=== PATIENT | female | born 1970 | race Two or more races ===

== ENCOUNTER 2016-12-31 18:20 | Inpatient (IN) | payer OTHER ==
[2016-12-31 18:44] VITALS: BMI 25.0
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
[2017-01-01] MEDS ORDERED: ACETAMINOPHEN 325 MG TABLET (FP) PO PRN (02:26)
[2017-01-01] MEDS ORDERED: MAG HYDROX/AL HYDROX/SIMETH 30 ML UNIT-DOSE CUP PO PRN (02:26)
[2017-01-01] MEDS ORDERED: hydrOXYzine PAMOATE 25 MG CAPSULE (FP) PO PRN (02:26)
[2017-01-01] MEDS ORDERED: chlordiazePOXIDE HCL 25 MG CAPSULE PO PRN (02:26)
[2017-01-01] MEDS ORDERED: IBUPROFEN 400 MG TABLET (FP) PO PRN (02:26)
[2017-01-01] MEDS ORDERED: guaiFENesin/D-METHORPHAN HB 10 ML UNIT-DOSE CUPS PO PRN (02:26)
[2017-01-01] MEDS ORDERED: P-EPHED 60MG/TRIPROLIDI 2.5MG TABLET PO PRN (02:26)
[2017-01-01] MEDS ORDERED: MENTHOL/PHENOL 1 EACH UD MM PRN (02:26)
[2017-01-01] MEDS ORDERED: MAGNESIUM HYDROX 2400MG/30ML ORAL SUSPENSION 30 ML CUP PO PRN (02:26)
[2017-01-01] MEDS ORDERED: chlordiazePOXIDE HCL 25 MG CAPSULE PO ONE (02:26)
[2017-01-01] MEDS ORDERED: LOPERAMIDE HCL 2 MG CAPSULE PO PRN (02:26)
[2017-01-01] MEDS ORDERED: ALBUTEROL SO4 6.7 GM HFA INHALER IH PRN (02:39)
[2017-01-01] MEDS: diphenhydrAMINE HCL 50 MG CAPSULE PO PRN (03:27)
[2017-01-01] MEDS: chlordiazePOXIDE HCL 25 MG CAPSULE PO SCH ×4 (06:58→23:10)
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
--- NOTE | 2017-01-01 09:55 | PN ---
S CIWA - CIWA Score Nausea/Vomitin Muscle Tremors: 3 Anxiety: 3 Agitation: 2 Paroxysmal Sweats: 1-Minimal Palms Moist Orientation: 0-Oriented Tacttile Disturbances: 1-Very Mild Itch/Numbness Auditory Disturbances: 1-Very Mild Visual Disturbances: 1-Very Mild Sensitivity Headache: 2-Mild CIWA-Ar Total Score: 17 BHS Progress Note (SOAP) Subjective: ALERT,IRRITABLE,ANXIOUS,INTERRUPTED SLEEP,TREMOR Objective: 01/01/17 09:53 Vital Signs Temperature 97.5 F L 01/01/17 09:47 Pulse Rate 65 01/01/17 09:47 Respiratory Rate 18 01/01/17 09:47 Blood Pressure 121/69 01/01/17 09:47 O2 Sat by Pulse Oximetry (%) EKG SINUS BRADYCARDIA 55 NO CHEST PAIN,NO SOB NO DIZZINESS LABS PENDING Assessment: 01/01/17 09:55 WITHDRAWAL SYMPTOM Plan: CONTINUE DETOX
[2017-01-01 09:58] LABS: MCH 29.2 pg (25.7-33.7); MCHC 32.4 g/dl (32.0-36.0); MEAN CELL VOLUME 90.3 fl (80-96); MEAN PLT VOLUME 10.8 fl (7.5-11.1); PLATELET COUNT 160 K/MM3 (134-434); RDW 14.3 % (11.6-15.6); WHITE BLOOD COUNT 6.9 K/mm3 (4.0-10.0)
[2017-01-01 10:16] LABS: ALBUMIN 3.2 g/dl (3.4-5.0); ANION GAP 6 (8-16); CALCIUM 8.6 mg/dL (8.5-10.1); CO2 31 mmol/L (21-32); GLUCOSE,RANDOM 86 mg/dL (74-106); SGOT/AST 12 U/L (15-37); SGPT/ALT 25 U/L (12-78)
[2017-01-01 10:21] LABS: ALK PHOS 79 U/L (45-117); BILIRUBIN,TOTAL 0.2 mg/dL (0.2-1.0)
--- NOTE | 2017-01-01 11:18 | EKG ---
Test Reason : Blood Pressure : / mmHG Vent. Rate : 055 BPM Atrial Rate : 055 BPM P-R Int : 140 ms QRS Dur : 082 ms QT Int : 438 ms P-R-T Axes : 061 048 060 degrees QTc Int : 419 ms SINUS BRADYCARDIA POSSIBLE LEFT ATRIAL ENLARGEMENT BORDERLINE ECG NO PREVIOUS ECGS AVAILABLE Confirmed by MAYNOR EDOUARD, RADHA ([id number]) on 01/01/2017 11:17:53 AM Referred By: Mal Alvarenga Confirmed By:RADHA MCGUIRE MD
[2017-01-01] MEDS: PRENATAL VITAMINS W/ FOLIC ACID TABLET (FP) PO SCH (11:48)
[2017-01-01] MEDS: HYDROCORTISONE 2.5% TOPICAL CREAM 30 GM TUBE PR SCH (11:48)
[2017-01-01 17:13] LABS: URINE APPEARANCE SLCLOUDY; URINE BILIRUBIN NEGATIVE (NEGATIVE); URINE BLOOD NEGATIVE (NEGATIVE); URINE COLOR LTYELLOW; URINE GLUCOSE (UA) NEGATIVE (NEGATIVE); URINE KETONE NEGATIVE (NEGATIVE); URINE LEUK ESTERASE NEGATIVE (NEGATIVE); URINE NITRITE NEGATIVE (NEGATIVE); URINE PROTEIN NEGATIVE (NEGATIVE); URINE UROBILINOGEN NEGATIVE mg/dL (0.2-1.0)
[2017-01-01] MEDS: NICOTINE POLACRILEX 2 MG GUM BC PRN (17:48)
[2017-01-01] MEDS: THIAMINE HCL 100 MG TABLET (FP) PO SCH (22:25)
[2017-01-02] MEDS: chlordiazePOXIDE HCL 25 MG CAPSULE PO SCH ×4 (06:47→22:15)
[2017-01-02] MEDS: MAGNESIUM CITRATE 300 ML BOTTLE PO PRN (09:40)
[2017-01-02] MEDS: NICOTINE POLACRILEX 2 MG GUM BC PRN (09:40)
[2017-01-02] MEDS: PRENATAL VITAMINS W/ FOLIC ACID TABLET (FP) PO SCH (10:34)
[2017-01-02] MEDS: BACITRACIN 0.9 GM PACKET TP SCH ×2 (10:35→22:15)
[2017-01-02] MEDS: HYDROCORTISONE 2.5% TOPICAL CREAM 30 GM TUBE PR SCH (10:36)
[2017-01-02] MEDS: TOLNAFTATE 1% CREAM 15 GM TUBE TP SCH ×2 (11:00→23:58)
--- NOTE | 2017-01-02 11:35 | PN ---
S CIWA - CIWA Score Nausea/Vomitin Muscle Tremors: 3 Anxiety: 3 Agitation: 2 Paroxysmal Sweats: 1-Minimal Palms Moist Orientation: 0-Oriented Tacttile Disturbances: 1-Very Mild Itch/Numbness Auditory Disturbances: 1-Very Mild Visual Disturbances: 1-Very Mild Sensitivity Headache: 2-Mild CIWA-Ar Total Score: 17 BHS Progress Note (SOAP) Subjective: ALERT,IRRITABLE,ANXIOUS,INTERRUPTED SLEEP,TREMOR,PAIN IN THE BODY, Objective: 01/02/17 11:34 Vital Signs Temperature 98.2 F 01/02/17 10:11 Pulse Rate 79 01/02/17 10:11 Respiratory Rate 16 01/02/17 10:11 Blood Pressure 123/66 01/02/17 10:11 O2 Sat by Pulse Oximetry (%) Assessment: 01/02/17 11:34 Laboratory Last Values WBC 6.9 K/mm3 (4.0-10.0) 01/01/17 07:00 RBC 3.83 M/mm3 (3.60-5.2) 01/01/17 07:00 Hgb 11.2 GM/dL (10.7-15.3) 01/01/17 07:00 Hct 34.5 % (32.4-45.2) 01/01/17 07:00 MCV 90.3 fl (80-96) 01/01/17 07:00 MCH 29.2 pg (25.7-33.7) 01/01/17 07:00 MCHC 32.4 g/dl (32.0-36.0) 01/01/17 07:00 RDW 14.3 % (11.6-15.6) 01/01/17 07:00 Plt Count 160 K/MM3 (134-434) 01/01/17 07:00 MPV 10.8 fl (7.5-11.1) 01/01/17 07:00 Sodium 143 mmol/L (136-145) 01/01/17 07:00 Potassium 4.1 mmol/L (3.5-5.1) 01/01/17 07:00 Chloride 106 mmol/L (98-107) 01/01/17 07:00 Carbon Dioxide 31 mmol/L (21-32) 01/01/17 07:00 Anion Gap 6 (8-16) L 01/01/17 07:00 BUN 15 mg/dL (7-18) 01/01/17 07:00 Creatinine 1.0 mg/dL (0.55-1.02) 01/01/17 07:00 Creat Clearance w eGFR > 60 (>60) 01/01/17 07:00 Random Glucose 86 mg/dL (74-106) 01/01/17 07:00 Calcium 8.6 mg/dL (8.5-10.1) 01/01/17 07:00 Total Bilirubin 0.2 mg/dL (0.2-1.0) D 01/01/17 07:00 AST 12 U/L (15-37) L 01/01/17 07:00 ALT 25 U/L (12-78) D 01/01/17 07:00 Alkaline Phosphatase 79 U/L (45-117) 01/01/17 07:00 Total Protein 6.0 g/dl (6.4-8.2) L 01/01/17 07:00 Albumin 3.2 g/dl (3.4-5.0) L 01/01/17 07:00 Urine Color Ltyellow 01/01/17 14:00 Urine Appearance Slcloudy 01/01/17 14:00 Urine pH 5.0 (5.0-8.0) 01/01/17 14:00 Ur Specific [place] 1.020 (1.005-1.025) 01/01/17 14:00 Urine Protein Negative (NEGATIVE) 01/01/17 14:00 Urine Glucose (UA) Negative (NEGATIVE) 01/01/17 14:00 Urine Ketones Negative (NEGATIVE) 01/01/17 14:00 Urine Blood Negative (NEGATIVE) 01/01/17 14:00 Urine Nitrite Negative (NEGATIVE) 01/01/17 14:00 Urine Bilirubin Negative (NEGATIVE) 01/01/17 14:00 Urine Urobilinogen Negative mg/dL (0.2-1.0) 01/01/17 14:00 Ur Leukocyte Esterase Negative (NEGATIVE) 01/01/17 14:00 RPR Titer Nonreactive (NONREACTIVE) 01/01/17 07:00 01/02/17 11:34 WITHDRAWAL SYMPTOM Plan: CONTINUE DETOX,PSYCHIATRIC REEVALUATION
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
[2017-01-02] MEDS: THIAMINE HCL 100 MG TABLET (FP) PO SCH (22:15)
[2017-01-03] MEDS: chlordiazePOXIDE 5 MG CAPSULE PO SCH ×4 (06:34→22:15)
[2017-01-03] MEDS: BACITRACIN 0.9 GM PACKET TP SCH ×2 (10:42→22:15)
[2017-01-03] MEDS: PRENATAL VITAMINS W/ FOLIC ACID TABLET (FP) PO SCH (10:42)
[2017-01-03] MEDS: LURASIDONE HCL 20 MG TABLET PO SCH (10:42)
[2017-01-03] MEDS: HYDROCORTISONE 2.5% TOPICAL CREAM 30 GM TUBE PR SCH (10:43)
[2017-01-03] MEDS: TOLNAFTATE 1% CREAM 15 GM TUBE TP SCH ×2 (10:44→22:15)
--- NOTE | 2017-01-03 13:37 | PN ---
S Progress Note (SOAP) Subjective: alert,irritable,anxious,interrupted sleep,tremor Objective: 01/03/17 13:36 Vital Signs Temperature 98.1 F 01/03/17 10:00 Pulse Rate 81 01/03/17 10:00 Respiratory Rate 18 01/03/17 10:00 Blood Pressure 123/62 01/03/17 10:00 O2 Sat by Pulse Oximetry (%) Assessment: 01/03/17 13:37 withdrawal symptom Plan: continue detox
[2017-01-03] MEDS: NICOTINE POLACRILEX 2 MG GUM BC PRN (20:12)
[2017-01-03] MEDS: THIAMINE HCL 100 MG TABLET (FP) PO SCH (22:15)
[2017-01-03] MEDS: diphenhydrAMINE HCL 50 MG CAPSULE PO PRN (22:15)
[2017-01-04] MEDS: chlordiazePOXIDE HCL 10 MG CAPSULE PO SCH ×4 (07:27→22:09)
--- NOTE | 2017-01-04 10:15 | PN ---
S Progress Note (SOAP) Subjective: ALERT,IRRITABLE,ANXIOUS,INTERRUPTED SLEEP Objective: 01/04/17 10:13 Vital Signs Temperature 98.1 F 01/04/17 06:16 Pulse Rate 67 01/04/17 06:16 Respiratory Rate 18 01/04/17 06:16 Blood Pressure 112/64 01/04/17 06:16 O2 Sat by Pulse Oximetry (%) Assessment: 01/04/17 10:14 WITHDRAWAL SYMPTOM Plan: CONTINUE DETOX
[2017-01-04] MEDS: BACITRACIN 0.9 GM PACKET TP SCH ×2 (10:49→22:09)
[2017-01-04] MEDS: LURASIDONE HCL 20 MG TABLET PO SCH (10:49)
[2017-01-04] MEDS: PRENATAL VITAMINS W/ FOLIC ACID TABLET (FP) PO SCH (10:49)
[2017-01-04] MEDS: HYDROCORTISONE 2.5% TOPICAL CREAM 30 GM TUBE PR SCH (10:50)
[2017-01-04] MEDS: TOLNAFTATE 1% CREAM 15 GM TUBE TP SCH ×2 (10:50→22:55)
[2017-01-04] MEDS: MAGNESIUM CITRATE 300 ML BOTTLE PO PRN (11:03)
[2017-01-04] MEDS: NICOTINE POLACRILEX 2 MG GUM BC PRN (11:04)
[2017-01-04] MEDS: THIAMINE HCL 100 MG TABLET (FP) PO SCH (22:09)
--- NOTE | 2017-01-05 09:06 | DS ---
[facility] Detox Discharge Summary Admission Date: 01/01/17 Discharge Date: 01/05/17 - History Present History: Alcohol Dependence, Cannabis Dependence, Cocaine Dependence Pertinent Past History: asthma history of anemia schizoaffective disorder hemorrhoid weight loss contusion of right orbit chronic low back pain neck pain history of skin graft left thigh ptsd nicotine dependence - Physical Exam Results Vital Signs: Vital Signs Temperature 97.3 F L 01/05/17 06:23 Pulse Rate 73 01/05/17 06:23 Respiratory Rate 18 01/05/17 06:23 Blood Pressure 106/51 01/05/17 06:23 O2 Sat by Pulse Oximetry (%) Pertinent Admission Physical Exam Findings: withdrawal symptom - Treatment Hospital Course: Detox Protocol Followed, Detoxed Safely, Responded well, Discharged Condition Good, Rehab Referral Accepted Patient has Accepted [facility] Referral [facility] - Medication Discharge Medications: Ambulatory Orders Nicotine Polacrilex [Nicorelief -] 4 mg BUC Q2H PRN #100 gum 11/23/13 Latuda 80 mg PO DAILY 01/01/17 Venlafaxine HCl ER [Effexor Xr -] 37.5 mg PO DAILY 01/01/17 - Diagnosis (1) Alcohol dependence with uncomplicated withdrawal Current Visit: Yes Status: Acute (2) Asthma Current Visit: Yes Status: Chronic (3) Cannabis dependence Current Visit: Yes Status: Chronic (4) Cocaine dependence Current Visit: Yes Status: Chronic (5) History of anemia Current Visit: Yes Status: Chronic (6) Nicotine dependence Current Visit: Yes Status: Chronic (7) Schizoaffective disorder Current Visit: Yes Status: Chronic (8) Hemorrhoid Current Visit: Yes Status: Acute (9) Weight loss Current Visit: Yes Status: Acute (10) Contusion of right orbit Current Visit: Yes Status: Acute (11) Chronic low back pain Current Visit: Yes Status: Acute (12) Neck pain Current Visit: Yes Status: Acute (13) History of skin graft Current Visit: Yes Status: Acute (14) PTSD (post-traumatic stress disorder) Current Visit: Yes Status: Acute
[2017-01-05 10:03] VITALS: BP 119/69; PULSE 77; TEMP 97.5
[2017-01-05] MEDS: LURASIDONE HCL 20 MG TABLET PO SCH (10:08)
[2017-01-05] MEDS: PRENATAL VITAMINS W/ FOLIC ACID TABLET (FP) PO SCH (10:08)
[2017-01-05] MEDS: BACITRACIN 0.9 GM PACKET TP SCH (10:08)
[2017-01-05] MEDS: HYDROCORTISONE 2.5% TOPICAL CREAM 30 GM TUBE PR SCH (10:09)
[2017-01-05] MEDS: TOLNAFTATE 1% CREAM 15 GM TUBE TP SCH (10:09)
[2017-01-05] MEDS: NICOTINE POLACRILEX 2 MG GUM BC PRN (10:22)
== END 2017-01-05 12:45 | disposition other institution (70) | DRG 774 ==
LOC: YASAS 18:20 → Y6N 01-01 01:38
PROVIDERS: ADMIT Internal Medicine; ATTEND Internal Medicine
PROC: HZ2ZZZZ Detoxification Services for Substance Abuse Treatment (ICD-10-PCS; principal; 2017-01-01)
DX: F10.230 Alcohol dependence with withdrawal, uncomplicated (principal); F14.20 Cocaine dependence, uncomplicated; F12.20 Cannabis dependence, uncomplicated; F17.210 Nicotine dependence, cigarettes, uncomplicated; F19.24 Other psychoactive substance dependence with psychoactive substance-induced mood disorder; F43.10 Post-traumatic stress disorder, unspecified; F25.9 Schizoaffective disorder, unspecified; R00.1 Bradycardia, unspecified; J45.909 Unspecified asthma, uncomplicated; K64.8 Other hemorrhoids; M54.5 Low back pain; G89.29 Other chronic pain; M54.2 Cervicalgia; S05.11XA Contusion of eyeball and orbital tissues, right eye, initial encounter; X58.XXXA Exposure to other specified factors, initial encounter; Y93.9 Activity, unspecified; Y92.9 Unspecified place or not applicable; Z86.69 Personal history of other diseases of the nervous system and sense organs; Z87.898 Personal history of other specified conditions; Z86.2 Personal history of diseases of the blood and blood-forming organs and certain disorders involving the immune mechanism; Z88.8 Allergy status to other drugs, medicaments and biological substances; Z87.42 Personal history of other diseases of the female genital tract; Z91.5 Personal history of self-harm; E72.04 Cystinosis
CPT/HCPCS: 36415; 80053; 81003; 85027; 86593; 93005; 93010

== ENCOUNTER 2016-12-31 20:37 | Emergency (ER) | payer OTHER ==
[2016-12-31 21:44] VITALS: BP 123/70; PULSE 67; TEMP 98.7; BMI 25.0
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
== END 2017-01-01 01:03 | disposition home or self-care (01) ==
LOC: JER 20:37
DX: S00.11XA Contusion of right eyelid and periocular area, initial encounter (principal); Y04.2XXA Assault by strike against or bumped into by another person, initial encounter; Y93.89 Activity, other specified; Y92.099 Unspecified place in other non-institutional residence as the place of occurrence of the external cause; Y07.01 Husband, perpetrator of maltreatment and neglect
CPT/HCPCS: 70450-TC; 70480-TC; 84703; 99281-25

== ENCOUNTER 2017-01-05 12:55 | Inpatient (IN) | payer OTHER ==
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
[2017-01-05] MEDS ORDERED: P-EPHED 60MG/TRIPROLIDI 2.5MG TABLET PO PRN (15:01)
[2017-01-05] MEDS ORDERED: MAGNESIUM CITRATE 300 ML BOTTLE PO PRN (15:01)
[2017-01-05] MEDS ORDERED: guaiFENesin/D-METHORPHAN HB 10 ML UNIT-DOSE CUPS PO PRN (15:01)
[2017-01-05] MEDS ORDERED: MAG HYDROX/AL HYDROX/SIMETH 30 ML UNIT-DOSE CUP PO PRN (15:01)
[2017-01-05] MEDS ORDERED: ACETAMINOPHEN 325 MG TABLET (FP) PO PRN (15:01)
[2017-01-05] MEDS ORDERED: LOPERAMIDE HCL 2 MG CAPSULE PO PRN (15:01)
[2017-01-05] MEDS ORDERED: MENTHOL/PHENOL 1 EACH UD MM PRN (15:01)
[2017-01-05] MEDS ORDERED: ALBUTEROL SO4 6.7 GM HFA INHALER IH SCH (15:15)
--- NOTE | 2017-01-05 16:14 | HP ---
[facility] Rehab Assess/Revision - Admission History Admitted to Rehab from: [facility] Date of Admission to Rehab: 01/05/17 - Vital signs Vital Signs: Vital Signs Period Temp Pulse Resp BP Sys/Rinaldi Pulse Ox Last 24 Hr 98.7 F 89 18 135/75 - Findings Detox History & Physical reviewed: Yes Concur with findings: Yes Comments/Additional Findings: transferred from detox to rehab admission as per protocol
[2017-01-05] MEDS: BACITRACIN 0.9 GM PACKET TP SCH (21:44)
[2017-01-05] MEDS: HYDROCORTISONE 2.5% TOPICAL CREAM 30 GM TUBE RC SCH (21:44)
[2017-01-05] MEDS: TOLNAFTATE 1% CREAM 15 GM TUBE TP SCH (21:45)
[2017-01-05] MEDS: THIAMINE HCL 100 MG TABLET (FP) PO SCH (21:46)
[2017-01-06] MEDS: PRENATAL VITAMINS W/ FOLIC ACID TABLET (FP) PO SCH (10:42)
[2017-01-06] MEDS: BACITRACIN 0.9 GM PACKET TP SCH ×2 (10:43→21:58)
[2017-01-06] MEDS: NICOTINE 14 MG/24 HOURS TOPICAL PATCH TD SCH (10:43)
[2017-01-06] MEDS: HYDROCORTISONE 2.5% TOPICAL CREAM 30 GM TUBE RC SCH ×2 (10:45→21:57)
[2017-01-06] MEDS: TOLNAFTATE 1% CREAM 15 GM TUBE TP SCH ×2 (10:46→21:59)
--- NOTE | 2017-01-06 13:22 | PN ---
Psychiatric Progress Note Vital Signs: Vital Signs Period Temp Pulse Resp BP Sys/Rinaldi Pulse Ox Last 24 Hr 98.0 F-98.7 F 76-91 16-18 119-135/75-77 Date of Session: 01/06/17 Chief Complaint:: Sergei nervious still having mood swing,need medications. HPI: Patient addressed Alcohol,Cocaine and Cannabis dependence comorbid with PTSD,Substance induced mood disorder,Schizoaffective disorder. ROS: BA,Chronic low back pain,Anemia. Current Medications: Active Medications Generic Name Dose Route Start Last Admin Trade Name Freq PRN Reason Stop Dose Admin Acetaminophen 650 mg 01/05/17 15:01 Tylenol - PO Q4H PRN FEVER OR PAIN Al Hydroxide/Mg Hydroxide 30 ml 01/05/17 15:01 Mylanta Oral Suspension - PO Q6H PRN DYSPEPSIA Albuterol Sulfate 2 puff 01/05/17 16:46 Ventolin Hfa Inhaler - IH Q4H PRN ASTHMA Bacitracin 0.9 gm 01/05/17 22:00 01/06/17 10:43 Bacitracin - TP 0.9 gm BID DELFIN Administration Diphenhydramine HCl 50 mg 01/05/17 15:01 Benadryl - PO HSMR1 PRN FOR ITCHING Eucalyptus/Menthol/Phenol/Sorbitol 1 each 01/05/17 15:01 Cepastat Lozenge - MM Q4H PRN SORE THROAT Guaifenesin 10 ml 01/05/17 15:01 Robitussin Dm - PO Q6H PRN COUGH Hydrocortisone 1 applic 01/05/17 22:00 01/06/17 10:45 Anusol 2.5% Hc Cream - RC 1 applic BID DELFIN Administration Hydroxyzine Pamoate 25 mg 01/05/17 15:01 Vistaril - PO Q4H PRN AGITATION Ibuprofen 400 mg 01/05/17 15:01 Motrin - PO Q6H PRN PAIN Loperamide HCl 4 mg 01/05/17 15:01 Imodium - PO Q6H PRN DIARRHEA Lurasidone HCl 40 mg 01/06/17 22:00 Latuda - PO HS DELFIN Magnesium Citrate 300 ml 01/05/17 15:01 Citroma - PO 01/07/17 15:02 Q48H PRN CONSTIPATION Magnesium Hydroxide 30 ml 01/05/17 15:01 Milk Of Magnesia - PO DAILY PRN CONSTIPATION Nicotine 14 mg 01/06/17 10:00 01/06/17 10:43 Nicoderm Patch - TD 14 mg DAILY DELFIN Administration Nicotine Polacrilex 2 mg 01/05/17 15:01 Nicorette Gum - BUC Q2H PRN NICOTINE REPLACEMENT RX Multivit/Folic Acid/Iron 1 tab 01/06/17 10:00 01/06/17 10:42 Vitamins (Sjr) - PO 1 tab DAILY DELFIN Administration Pseudoephedrine/Triprolidine 1 combo 01/05/17 15:01 Actifed - PO TID PRN NASAL CONGESTION Thiamine HCl 100 mg 01/05/17 22:00 01/05/17 21:46 Vitamin B1 - PO 100 mg HS DELFIN Administration Tolnaftate 1 applic 01/05/17 22:00 01/06/17 10:46 Tinactin 1% Cream - TP 1 applic BID DELFIN Administration Current Side Effect: No Lab tests ordered: No Lab tests reviewed: Yes Provider note:: Chart was revueved,patient was seen today in my office.Current management has been revuewed and discussed with the patient .properties of latuda as well as other mood dstbililizers has been discussed including benefits,side effect profile and dose adjustment. Latuda 40 mg po hs will be started tonight. Supportive therapy provided. Total face to face time:: 35 Mental Status Exam - Mental Status Exam Alert and Oriented to: Time, Place, Person Cognitive Function: Grossly Intact Patient Appearance: Unkempt Mood: Anxious, Apprehensive, Irritable Affect: Mood Congruent, Labile Patient Behavior: Talkative, Cooperative Speech Pattern: Clear Voice Loudness: Normal Thought Process: Goal Oriented Thought Disorder: Being Controlled Hallucinations: Denies Suicidal Ideation: Denies Homicidal Ideation: Denies Insight/Judgement: Fair Sleep: Fair Appetite: Good Muscle strength/Tone: Normal Gait/Station: Normal Psychiatric Treatment Plan - Problem List (1) Chronic low back pain Current Visit: Yes (2) Alcohol dependence Current Visit: Yes (3) Asthma Current Visit: Yes (4) Cannabis dependence Current Visit: Yes (5) Cocaine dependence Current Visit: Yes (6) History of anemia Current Visit: Yes (7) Nicotine dependence Current Visit: Yes (8) PTSD (post-traumatic stress disorder) Current Visit: Yes Comment: Self-report. (9) Schizoaffective disorder, depressive type Current Visit: Yes
[2017-01-06] MEDS: THIAMINE HCL 100 MG TABLET (FP) PO SCH (21:58)
[2017-01-06] MEDS: LURASIDONE HCL 40 MG TABLET PO SCH (21:59)
[2017-01-06] MEDS: diphenhydrAMINE HCL 50 MG CAPSULE PO PRN (21:59)
[2017-01-07] MEDS: hydrOXYzine PAMOATE 25 MG CAPSULE (FP) PO PRN (06:26)
[2017-01-07] MEDS ORDERED: PT OWN MED DRAWER 7, Y5N ONE (08:32)
[2017-01-07] MEDS: HYDROCORTISONE 2.5% TOPICAL CREAM 30 GM TUBE RC SCH ×2 (10:32→21:49)
[2017-01-07] MEDS: NICOTINE 14 MG/24 HOURS TOPICAL PATCH TD SCH (10:33)
[2017-01-07] MEDS: PRENATAL VITAMINS W/ FOLIC ACID TABLET (FP) PO SCH (10:33)
[2017-01-07] MEDS: TOLNAFTATE 1% CREAM 15 GM TUBE TP SCH ×2 (10:33→21:50)
[2017-01-07] MEDS: BACITRACIN 0.9 GM PACKET TP SCH ×2 (10:34→21:49)
[2017-01-07] MEDS: LURASIDONE HCL 40 MG TABLET PO SCH (21:50)
[2017-01-07] MEDS: THIAMINE HCL 100 MG TABLET (FP) PO SCH (21:50)
[2017-01-07] MEDS: IBUPROFEN 400 MG TABLET (FP) PO PRN (21:52)
[2017-01-08] MEDS: hydrOXYzine PAMOATE 25 MG CAPSULE (FP) PO PRN ×2 (06:12→10:13)
[2017-01-08] MEDS ORDERED: PT OWN MED DRAWER 7, Y5N ONE ×4 (08:30→19:32)
[2017-01-08] MEDS: HYDROCORTISONE 2.5% TOPICAL CREAM 30 GM TUBE RC SCH ×2 (10:08→21:42)
[2017-01-08] MEDS: BACITRACIN 0.9 GM PACKET TP SCH ×2 (10:09→21:42)
[2017-01-08] MEDS: NICOTINE 14 MG/24 HOURS TOPICAL PATCH TD SCH (10:09)
[2017-01-08] MEDS: PRENATAL VITAMINS W/ FOLIC ACID TABLET (FP) PO SCH (10:10)
[2017-01-08] MEDS: TOLNAFTATE 1% CREAM 15 GM TUBE TP SCH ×2 (10:10→21:42)
[2017-01-08] MEDS: NICOTINE POLACRILEX 2 MG GUM BUC PRN ×2 (10:11→15:08)
[2017-01-08] MEDS: THIAMINE HCL 100 MG TABLET (FP) PO SCH (21:41)
[2017-01-08] MEDS: LURASIDONE HCL 40 MG TABLET PO SCH (21:42)
[2017-01-08] MEDS: diphenhydrAMINE HCL 50 MG CAPSULE PO PRN (21:44)
[2017-01-09] MEDS ORDERED: MAGNESIUM CITRATE 300 ML BOTTLE PO PRN (00:15)
[2017-01-09] MEDS: hydrOXYzine PAMOATE 25 MG CAPSULE (FP) PO PRN ×3 (06:20→15:51)
[2017-01-09] MEDS: NICOTINE POLACRILEX 2 MG GUM BUC PRN ×2 (06:20→11:06)
[2017-01-09] MEDS ORDERED: PT OWN MED DRAWER 7, Y5N ONE ×2 (09:05→19:55)
[2017-01-09] MEDS: HYDROCORTISONE 2.5% TOPICAL CREAM 30 GM TUBE RC SCH ×2 (10:49→21:58)
[2017-01-09] MEDS: BACITRACIN 0.9 GM PACKET TP SCH ×2 (10:49→21:57)
[2017-01-09] MEDS: PRENATAL VITAMINS W/ FOLIC ACID TABLET (FP) PO SCH (10:49)
[2017-01-09] MEDS: NICOTINE 14 MG/24 HOURS TOPICAL PATCH TD SCH (10:49)
[2017-01-09] MEDS: TOLNAFTATE 1% CREAM 15 GM TUBE TP SCH ×2 (10:50→22:00)
[2017-01-09 12:18] LABS: HIV 1 & 2 AB NEGATIVE; HIV 1 AGp24 NEGATIVE
[2017-01-09] MEDS: THIAMINE HCL 100 MG TABLET (FP) PO SCH (21:57)
[2017-01-09] MEDS: LURASIDONE HCL 40 MG TABLET PO SCH (21:57)
[2017-01-09] MEDS: diphenhydrAMINE HCL 50 MG CAPSULE PO PRN (21:59)
[2017-01-10] MEDS: hydrOXYzine PAMOATE 25 MG CAPSULE (FP) PO PRN ×2 (08:46→21:57)
[2017-01-10] MEDS ORDERED: PT OWN MED DRAWER 7, Y5N ONE (09:02)
[2017-01-10] MEDS: PRENATAL VITAMINS W/ FOLIC ACID TABLET (FP) PO SCH (10:12)
[2017-01-10] MEDS: BACITRACIN 0.9 GM PACKET TP SCH ×2 (10:12→21:55)
[2017-01-10] MEDS: NICOTINE 14 MG/24 HOURS TOPICAL PATCH TD SCH (10:12)
[2017-01-10] MEDS: HYDROCORTISONE 2.5% TOPICAL CREAM 30 GM TUBE RC SCH ×2 (10:12→21:55)
[2017-01-10] MEDS: TOLNAFTATE 1% CREAM 15 GM TUBE TP SCH ×2 (10:13→21:56)
[2017-01-10] MEDS: NICOTINE POLACRILEX 2 MG GUM BUC PRN ×2 (13:20→18:38)
[2017-01-10] MEDS: THIAMINE HCL 100 MG TABLET (FP) PO SCH (21:55)
[2017-01-10] MEDS: LURASIDONE HCL 40 MG TABLET PO SCH (21:56)
[2017-01-11] MEDS: hydrOXYzine PAMOATE 25 MG CAPSULE (FP) PO PRN ×3 (06:42→17:24)
[2017-01-11] MEDS: NICOTINE POLACRILEX 2 MG GUM BUC PRN ×3 (06:42→13:07)
[2017-01-11] MEDS: NICOTINE 14 MG/24 HOURS TOPICAL PATCH TD SCH (10:17)
[2017-01-11] MEDS: PRENATAL VITAMINS W/ FOLIC ACID TABLET (FP) PO SCH (10:17)
[2017-01-11] MEDS: BACITRACIN 0.9 GM PACKET TP SCH ×2 (10:17→21:37)
[2017-01-11] MEDS: TOLNAFTATE 1% CREAM 15 GM TUBE TP SCH ×2 (10:18→21:37)
[2017-01-11] MEDS: HYDROCORTISONE 2.5% TOPICAL CREAM 30 GM TUBE RC SCH ×2 (10:18→21:37)
[2017-01-11] MEDS: diphenhydrAMINE HCL 50 MG CAPSULE PO PRN (21:37)
[2017-01-11] MEDS: LURASIDONE HCL 40 MG TABLET PO SCH (21:38)
[2017-01-11] MEDS: THIAMINE HCL 100 MG TABLET (FP) PO SCH (21:38)
[2017-01-12] MEDS: hydrOXYzine PAMOATE 25 MG CAPSULE (FP) PO PRN ×4 (03:45→21:44)
[2017-01-12] MEDS: HYDROCORTISONE 2.5% TOPICAL CREAM 30 GM TUBE RC SCH ×2 (10:15→21:43)
[2017-01-12] MEDS: NICOTINE 14 MG/24 HOURS TOPICAL PATCH TD SCH (10:15)
[2017-01-12] MEDS: TOLNAFTATE 1% CREAM 15 GM TUBE TP SCH ×2 (10:16→21:43)
[2017-01-12] MEDS: PRENATAL VITAMINS W/ FOLIC ACID TABLET (FP) PO SCH (10:16)
[2017-01-12] MEDS: BACITRACIN 0.9 GM PACKET TP SCH ×2 (10:16→21:42)
[2017-01-12] MEDS: NICOTINE POLACRILEX 2 MG GUM BUC PRN ×3 (10:19→21:43)
[2017-01-12] MEDS ORDERED: PT OWN MED DRAWER 7, Y5N ONE (20:25)
[2017-01-12] MEDS: THIAMINE HCL 100 MG TABLET (FP) PO SCH (21:42)
[2017-01-12] MEDS: LURASIDONE HCL 40 MG TABLET PO SCH (21:42)
[2017-01-13] MEDS: hydrOXYzine PAMOATE 25 MG CAPSULE (FP) PO PRN ×4 (06:39→21:37)
[2017-01-13] MEDS: NICOTINE POLACRILEX 2 MG GUM BUC PRN ×3 (06:40→21:37)
[2017-01-13] MEDS: BACITRACIN 0.9 GM PACKET TP SCH ×2 (10:33→21:36)
[2017-01-13] MEDS: NICOTINE 14 MG/24 HOURS TOPICAL PATCH TD SCH (10:33)
[2017-01-13] MEDS: PRENATAL VITAMINS W/ FOLIC ACID TABLET (FP) PO SCH (10:33)
[2017-01-13] MEDS: TOLNAFTATE 1% CREAM 15 GM TUBE TP SCH ×2 (10:34→21:38)
[2017-01-13] MEDS: HYDROCORTISONE 2.5% TOPICAL CREAM 30 GM TUBE RC SCH ×2 (10:35→21:35)
[2017-01-13] MEDS ORDERED: PT OWN MED DRAWER 7, Y5N ONE (10:36)
[2017-01-13] MEDS: LURASIDONE HCL 40 MG TABLET PO SCH (21:36)
[2017-01-13] MEDS: THIAMINE HCL 100 MG TABLET (FP) PO SCH (21:36)
[2017-01-14] MEDS: hydrOXYzine PAMOATE 25 MG CAPSULE (FP) PO PRN ×2 (07:05→13:23)
[2017-01-14] MEDS ORDERED: PT OWN MED DRAWER 7, Y5N ONE ×2 (08:31→21:41)
[2017-01-14] MEDS: PRENATAL VITAMINS W/ FOLIC ACID TABLET (FP) PO SCH (10:25)
[2017-01-14] MEDS: BACITRACIN 0.9 GM PACKET TP SCH ×2 (10:26→21:38)
[2017-01-14] MEDS: NICOTINE 14 MG/24 HOURS TOPICAL PATCH TD SCH (10:26)
[2017-01-14] MEDS: HYDROCORTISONE 2.5% TOPICAL CREAM 30 GM TUBE RC SCH ×2 (10:28→21:41)
[2017-01-14] MEDS: NICOTINE POLACRILEX 2 MG GUM BUC PRN (10:29)
[2017-01-14] MEDS: TOLNAFTATE 1% CREAM 15 GM TUBE TP SCH ×2 (10:30→21:39)
[2017-01-14] MEDS ORDERED: HALOPERIDOL 1 MG TABLET (FP) PO PRN (13:43)
[2017-01-14] MEDS: IBUPROFEN 400 MG TABLET (FP) PO PRN ×2 (15:30→21:37)
[2017-01-14] MEDS: hydrOXYzine PAMOATE 50 MG CAPSULE (FP) PO PRN (18:49)
[2017-01-14] MEDS: MAGNESIUM HYDROX 2400MG/30ML ORAL SUSPENSION 30 ML CUP PO PRN (18:49)
[2017-01-14] MEDS: THIAMINE HCL 100 MG TABLET (FP) PO SCH (21:39)
[2017-01-14] MEDS: diphenhydrAMINE HCL 50 MG CAPSULE PO PRN (21:39)
[2017-01-14] MEDS: OLANZapine 5 MG TABLET PO PRN (21:40)
[2017-01-15] MEDS: OLANZapine 5 MG TABLET PO PRN ×3 (06:36→21:27)
[2017-01-15] MEDS: NICOTINE POLACRILEX 2 MG GUM BUC PRN ×3 (06:37→14:43)
[2017-01-15] MEDS ORDERED: LURASIDONE HCL 80 MG TABLET PO SCH (10:00)
[2017-01-15] MEDS: HYDROCORTISONE 2.5% TOPICAL CREAM 30 GM TUBE RC SCH ×2 (10:01→21:24)
[2017-01-15] MEDS: TOLNAFTATE 1% CREAM 15 GM TUBE TP SCH ×2 (10:01→21:24)
[2017-01-15] MEDS: LURASIDONE HCL 40 MG, LURASIDONE HCL 20 MG PO SCH (10:02)
[2017-01-15] MEDS: NICOTINE 14 MG/24 HOURS TOPICAL PATCH TD SCH (10:03)
[2017-01-15] MEDS: hydrOXYzine PAMOATE 50 MG CAPSULE (FP) PO PRN (10:03)
[2017-01-15] MEDS: BACITRACIN 0.9 GM PACKET TP SCH ×2 (10:03→21:24)
[2017-01-15] MEDS: PRENATAL VITAMINS W/ FOLIC ACID TABLET (FP) PO SCH (10:03)
[2017-01-15] MEDS: MAGNESIUM HYDROX 2400MG/30ML ORAL SUSPENSION 30 ML CUP PO PRN (12:19)
[2017-01-15] MEDS: IBUPROFEN 400 MG TABLET (FP) PO PRN (14:43)
[2017-01-15] MEDS ORDERED: MAGNESIUM CITRATE 300 ML BOTTLE PO PRN (16:20)
[2017-01-15] MEDS: THIAMINE HCL 100 MG TABLET (FP) PO SCH (21:23)
[2017-01-15] MEDS: diphenhydrAMINE HCL 50 MG CAPSULE PO PRN (21:24)
[2017-01-15] MEDS: DOCUSATE SODIUM 100 MG CAPSULE (FP) PO SCH (21:26)
[2017-01-16] MEDS: OLANZapine 5 MG TABLET PO PRN ×2 (08:49→21:34)
[2017-01-16] MEDS: BENZTROPINE MESYLATE 1 MG TABLET (FP) PO PRN (08:50)
[2017-01-16] MEDS: NICOTINE POLACRILEX 2 MG GUM BUC PRN ×3 (08:51→21:36)
[2017-01-16] MEDS ORDERED: PT OWN MED DRAWER 7, Y5N ONE ×2 (08:57→10:27)
[2017-01-16] MEDS: HYDROCORTISONE 2.5% TOPICAL CREAM 30 GM TUBE RC SCH ×2 (10:25→21:35)
[2017-01-16] MEDS: PRENATAL VITAMINS W/ FOLIC ACID TABLET (FP) PO SCH (10:25)
[2017-01-16] MEDS: BACITRACIN 0.9 GM PACKET TP SCH ×2 (10:25→21:35)
[2017-01-16] MEDS: LURASIDONE HCL 40 MG, LURASIDONE HCL 20 MG PO SCH (10:27)
[2017-01-16] MEDS: NICOTINE 14 MG/24 HOURS TOPICAL PATCH TD SCH (10:28)
[2017-01-16] MEDS: TOLNAFTATE 1% CREAM 15 GM TUBE TP SCH ×2 (10:29→21:35)
[2017-01-16] MEDS: hydrOXYzine PAMOATE 50 MG CAPSULE (FP) PO PRN (12:36)
[2017-01-16] MEDS: THIAMINE HCL 100 MG TABLET (FP) PO SCH (21:34)
[2017-01-16] MEDS: DOCUSATE SODIUM 100 MG CAPSULE (FP) PO SCH (21:34)
[2017-01-16] MEDS: diphenhydrAMINE HCL 50 MG CAPSULE PO PRN (21:35)
[2017-01-17] MEDS: hydrOXYzine PAMOATE 50 MG CAPSULE (FP) PO PRN ×3 (06:33→21:37)
[2017-01-17] MEDS: NICOTINE POLACRILEX 2 MG GUM BUC PRN ×4 (06:33→17:17)
[2017-01-17] MEDS: HYDROCORTISONE 2.5% TOPICAL CREAM 30 GM TUBE RC SCH ×2 (09:48→21:34)
[2017-01-17] MEDS: PRENATAL VITAMINS W/ FOLIC ACID TABLET (FP) PO SCH (09:49)
[2017-01-17] MEDS: LURASIDONE HCL 40 MG, LURASIDONE HCL 20 MG PO SCH (09:49)
[2017-01-17] MEDS ORDERED: PT OWN MED DRAWER 7, Y5N ONE ×2 (09:50→19:38)
[2017-01-17] MEDS: BACITRACIN 0.9 GM PACKET TP SCH ×2 (09:50→21:34)
[2017-01-17] MEDS: NICOTINE 14 MG/24 HOURS TOPICAL PATCH TD SCH (09:51)
[2017-01-17] MEDS: OLANZapine 5 MG TABLET PO PRN ×2 (09:51→21:37)
[2017-01-17] MEDS: TOLNAFTATE 1% CREAM 15 GM TUBE TP SCH ×2 (09:51→21:35)
[2017-01-17] MEDS: IBUPROFEN 400 MG TABLET (FP) PO PRN (12:47)
[2017-01-17] MEDS: DOCUSATE SODIUM 100 MG CAPSULE (FP) PO SCH (21:35)
[2017-01-17] MEDS: THIAMINE HCL 100 MG TABLET (FP) PO SCH (21:35)
[2017-01-18] MEDS: hydrOXYzine PAMOATE 50 MG CAPSULE (FP) PO PRN ×2 (06:25→20:10)
[2017-01-18] MEDS: IBUPROFEN 400 MG TABLET (FP) PO PRN (06:25)
[2017-01-18] MEDS: NICOTINE POLACRILEX 2 MG GUM BUC PRN ×5 (06:26→20:10)
[2017-01-18] MEDS: HYDROCORTISONE 2.5% TOPICAL CREAM 30 GM TUBE RC SCH ×2 (09:58→21:26)
[2017-01-18] MEDS: LURASIDONE HCL 40 MG, LURASIDONE HCL 20 MG PO SCH (09:59)
[2017-01-18] MEDS: PRENATAL VITAMINS W/ FOLIC ACID TABLET (FP) PO SCH (10:00)
[2017-01-18] MEDS: OLANZapine 5 MG TABLET PO PRN ×2 (10:00→21:30)
[2017-01-18] MEDS: BACITRACIN 0.9 GM PACKET TP SCH ×2 (10:00→21:27)
[2017-01-18] MEDS: NICOTINE 14 MG/24 HOURS TOPICAL PATCH TD SCH (10:01)
[2017-01-18] MEDS: TOLNAFTATE 1% CREAM 15 GM TUBE TP SCH ×2 (10:01→21:42)
[2017-01-18] MEDS ORDERED: PT OWN MED DRAWER 7, Y5N ONE (19:21)
[2017-01-18] MEDS: THIAMINE HCL 100 MG TABLET (FP) PO SCH (21:27)
[2017-01-18] MEDS: DOCUSATE SODIUM 100 MG CAPSULE (FP) PO SCH (21:27)
[2017-01-18] MEDS: BENZTROPINE MESYLATE 1 MG TABLET (FP) PO PRN (21:31)
[2017-01-19] MEDS: hydrOXYzine PAMOATE 50 MG CAPSULE (FP) PO PRN (06:41)
[2017-01-19] MEDS: NICOTINE POLACRILEX 2 MG GUM BUC PRN ×3 (06:42→17:50)
[2017-01-19] MEDS ORDERED: PT OWN MED DRAWER 7, Y5N ONE ×3 (08:42→13:54)
[2017-01-19] MEDS: PRENATAL VITAMINS W/ FOLIC ACID TABLET (FP) PO SCH (10:25)
[2017-01-19] MEDS: BACITRACIN 0.9 GM PACKET TP SCH ×2 (10:25→21:32)
[2017-01-19] MEDS: HYDROCORTISONE 2.5% TOPICAL CREAM 30 GM TUBE RC SCH ×2 (10:25→21:32)
[2017-01-19] MEDS: LURASIDONE HCL 40 MG, LURASIDONE HCL 20 MG PO SCH (10:25)
[2017-01-19] MEDS: TOLNAFTATE 1% CREAM 15 GM TUBE TP SCH ×2 (10:26→21:32)
[2017-01-19] MEDS: NICOTINE 14 MG/24 HOURS TOPICAL PATCH TD SCH (10:26)
[2017-01-19] MEDS: ALBUTEROL SO4 6.7 GM HFA INHALER IH PRN (10:30)
[2017-01-19] MEDS: OLANZapine 5 MG TABLET PO SCH ×2 (16:21→21:33)
[2017-01-19] MEDS: DOCUSATE SODIUM 100 MG CAPSULE (FP) PO SCH (21:32)
[2017-01-19] MEDS: THIAMINE HCL 100 MG TABLET (FP) PO SCH (21:33)
[2017-01-19] MEDS: diphenhydrAMINE HCL 50 MG CAPSULE PO PRN (21:34)
[2017-01-20] MEDS: hydrOXYzine PAMOATE 50 MG CAPSULE (FP) PO PRN ×2 (07:52→20:06)
[2017-01-20] MEDS: NICOTINE POLACRILEX 2 MG GUM BUC PRN ×2 (07:53→20:04)
[2017-01-20] MEDS ORDERED: PT OWN MED DRAWER 7, Y5N ONE (08:33)
[2017-01-20] MEDS: OLANZapine 5 MG TABLET PO SCH ×2 (10:26→21:34)
[2017-01-20] MEDS: BACITRACIN 0.9 GM PACKET TP SCH ×2 (10:26→21:34)
[2017-01-20] MEDS: PRENATAL VITAMINS W/ FOLIC ACID TABLET (FP) PO SCH (10:26)
[2017-01-20] MEDS: LURASIDONE HCL 40 MG, LURASIDONE HCL 20 MG PO SCH (10:27)
[2017-01-20] MEDS: HYDROCORTISONE 2.5% TOPICAL CREAM 30 GM TUBE RC SCH ×2 (10:28→21:36)
[2017-01-20] MEDS: TOLNAFTATE 1% CREAM 15 GM TUBE TP SCH ×2 (10:29→21:35)
[2017-01-20] MEDS: NICOTINE 14 MG/24 HOURS TOPICAL PATCH TD SCH (10:30)
[2017-01-20] MEDS: COLLOIDAL OATMEAL 1 BAR EACH TP PRN (10:32)
[2017-01-20] MEDS: BENZTROPINE MESYLATE 1 MG TABLET (FP) PO PRN ×2 (10:32→21:36)
[2017-01-20] MEDS: THIAMINE HCL 100 MG TABLET (FP) PO SCH (21:34)
[2017-01-20] MEDS: DOCUSATE SODIUM 100 MG CAPSULE (FP) PO SCH (21:34)
[2017-01-21] MEDS: hydrOXYzine PAMOATE 50 MG CAPSULE (FP) PO PRN ×4 (06:38→21:36)
[2017-01-21] MEDS: NICOTINE POLACRILEX 2 MG GUM BUC PRN ×3 (06:39→11:16)
[2017-01-21] MEDS: BACITRACIN 0.9 GM PACKET TP SCH ×2 (09:01→21:35)
[2017-01-21] MEDS: PRENATAL VITAMINS W/ FOLIC ACID TABLET (FP) PO SCH (09:01)
[2017-01-21] MEDS: TOLNAFTATE 1% CREAM 15 GM TUBE TP SCH ×2 (09:01→21:37)
[2017-01-21] MEDS: OLANZapine 5 MG TABLET PO SCH ×2 (09:01→21:35)
[2017-01-21] MEDS: LURASIDONE HCL 40 MG, LURASIDONE HCL 20 MG PO SCH (09:02)
[2017-01-21] MEDS: NICOTINE 14 MG/24 HOURS TOPICAL PATCH TD SCH (09:02)
[2017-01-21] MEDS: ALBUTEROL SO4 6.7 GM HFA INHALER IH PRN (11:15)
[2017-01-21] MEDS: HYDROCORTISONE 2.5% TOPICAL CREAM 30 GM TUBE RC SCH ×2 (12:01→21:37)
[2017-01-21] MEDS: NICOTINE POLACRILEX 4 MG GUM BUC PRN ×2 (15:49→21:37)
[2017-01-21] MEDS: DOCUSATE SODIUM 100 MG CAPSULE (FP) PO SCH (21:35)
[2017-01-21] MEDS: diphenhydrAMINE HCL 50 MG CAPSULE PO PRN (21:35)
[2017-01-21] MEDS: THIAMINE HCL 100 MG TABLET (FP) PO SCH (21:36)
[2017-01-21] MEDS: BENZTROPINE MESYLATE 1 MG TABLET (FP) PO PRN (21:37)
[2017-01-22] MEDS: hydrOXYzine PAMOATE 50 MG CAPSULE (FP) PO PRN ×3 (07:51→21:35)
[2017-01-22] MEDS: NICOTINE POLACRILEX 4 MG GUM BUC PRN ×4 (07:52→18:54)
[2017-01-22] MEDS ORDERED: PT OWN MED DRAWER 7, Y5N ONE ×2 (08:35→10:54)
[2017-01-22] MEDS: OLANZapine 5 MG TABLET PO SCH ×2 (10:48→21:32)
[2017-01-22] MEDS: HYDROCORTISONE 2.5% TOPICAL CREAM 30 GM TUBE RC SCH ×2 (10:48→21:32)
[2017-01-22] MEDS: BACITRACIN 0.9 GM PACKET TP SCH ×2 (10:48→21:31)
[2017-01-22] MEDS: PRENATAL VITAMINS W/ FOLIC ACID TABLET (FP) PO SCH (10:48)
[2017-01-22] MEDS: LURASIDONE HCL 40 MG, LURASIDONE HCL 20 MG PO SCH (10:48)
[2017-01-22] MEDS: TOLNAFTATE 1% CREAM 15 GM TUBE TP SCH ×2 (10:49→21:33)
[2017-01-22] MEDS: NICOTINE 14 MG/24 HOURS TOPICAL PATCH TD SCH (10:49)
[2017-01-22] MEDS: BENZTROPINE MESYLATE 1 MG TABLET (FP) PO PRN (10:54)
[2017-01-22] MEDS: DOCUSATE SODIUM 100 MG CAPSULE (FP) PO SCH (21:31)
[2017-01-22] MEDS: THIAMINE HCL 100 MG TABLET (FP) PO SCH (21:33)
[2017-01-23] MEDS: hydrOXYzine PAMOATE 50 MG CAPSULE (FP) PO PRN ×3 (06:29→17:41)
[2017-01-23] MEDS: NICOTINE POLACRILEX 4 MG GUM BUC PRN ×5 (06:29→22:09)
[2017-01-23] MEDS: COLLOIDAL OATMEAL 1 BAR EACH TP PRN (07:02)
[2017-01-23] MEDS ORDERED: PT OWN MED DRAWER 7, Y5N ONE ×3 (09:06→20:04)
[2017-01-23] MEDS: BENZTROPINE MESYLATE 1 MG TABLET (FP) PO PRN (10:34)
[2017-01-23] MEDS: LURASIDONE HCL 40 MG, LURASIDONE HCL 20 MG PO SCH (10:34)
[2017-01-23] MEDS: OLANZapine 5 MG TABLET PO SCH ×2 (10:34→22:07)
[2017-01-23] MEDS: BACITRACIN 0.9 GM PACKET TP SCH ×2 (10:35→22:07)
[2017-01-23] MEDS: HYDROCORTISONE 2.5% TOPICAL CREAM 30 GM TUBE RC SCH ×2 (10:35→22:08)
[2017-01-23] MEDS: TOLNAFTATE 1% CREAM 15 GM TUBE TP SCH ×2 (10:35→22:09)
[2017-01-23] MEDS: NICOTINE 14 MG/24 HOURS TOPICAL PATCH TD SCH (10:36)
[2017-01-23] MEDS: PRENATAL VITAMINS W/ FOLIC ACID TABLET (FP) PO SCH (10:36)
[2017-01-23] MEDS: ALBUTEROL SO4 6.7 GM HFA INHALER IH PRN (10:36)
[2017-01-23] MEDS: SENNOSIDES 8.6MG TABLET (FP) PO PRN (22:07)
[2017-01-23] MEDS: DOCUSATE SODIUM 100 MG CAPSULE (FP) PO SCH (22:07)
[2017-01-23] MEDS: THIAMINE HCL 100 MG TABLET (FP) PO SCH (22:07)
[2017-01-24] MEDS: hydrOXYzine PAMOATE 50 MG CAPSULE (FP) PO PRN ×2 (06:45→21:36)
[2017-01-24] MEDS: NICOTINE POLACRILEX 4 MG GUM BUC PRN ×2 (06:47→10:14)
[2017-01-24] MEDS: HYDROCORTISONE 2.5% TOPICAL CREAM 30 GM TUBE RC SCH ×2 (10:12→21:39)
[2017-01-24] MEDS: BACITRACIN 0.9 GM PACKET TP SCH ×2 (10:12→21:36)
[2017-01-24] MEDS: BENZTROPINE MESYLATE 1 MG TABLET (FP) PO PRN (10:13)
[2017-01-24] MEDS: NICOTINE 14 MG/24 HOURS TOPICAL PATCH TD SCH (10:13)
[2017-01-24] MEDS: LURASIDONE HCL 40 MG, LURASIDONE HCL 20 MG PO SCH (10:14)
[2017-01-24] MEDS: OLANZapine 5 MG TABLET PO SCH ×2 (10:14→21:36)
[2017-01-24] MEDS: PRENATAL VITAMINS W/ FOLIC ACID TABLET (FP) PO SCH (10:14)
[2017-01-24] MEDS: TOLNAFTATE 1% CREAM 15 GM TUBE TP SCH ×2 (10:15→21:37)
[2017-01-24] MEDS: THIAMINE HCL 100 MG TABLET (FP) PO SCH (21:36)
[2017-01-24] MEDS: DOCUSATE SODIUM 100 MG CAPSULE (FP) PO SCH (21:36)
[2017-01-25] MEDS: NICOTINE POLACRILEX 4 MG GUM BUC PRN ×4 (08:44→21:47)
[2017-01-25] MEDS: hydrOXYzine PAMOATE 50 MG CAPSULE (FP) PO PRN (08:44)
[2017-01-25] MEDS ORDERED: PT OWN MED DRAWER 7, Y5N ONE ×2 (09:01→21:48)
[2017-01-25] MEDS: PRENATAL VITAMINS W/ FOLIC ACID TABLET (FP) PO SCH (10:00)
[2017-01-25] MEDS: OLANZapine 5 MG TABLET PO SCH ×2 (10:00→21:45)
[2017-01-25] MEDS: BACITRACIN 0.9 GM PACKET TP SCH ×2 (10:00→21:47)
[2017-01-25] MEDS: BENZTROPINE MESYLATE 1 MG TABLET (FP) PO PRN (10:00)
[2017-01-25] MEDS: LURASIDONE HCL 40 MG, LURASIDONE HCL 20 MG PO SCH (10:01)
[2017-01-25] MEDS: HYDROCORTISONE 2.5% TOPICAL CREAM 30 GM TUBE RC SCH ×2 (10:02→21:48)
[2017-01-25] MEDS: NICOTINE 14 MG/24 HOURS TOPICAL PATCH TD SCH (10:02)
[2017-01-25] MEDS: TOLNAFTATE 1% CREAM 15 GM TUBE TP SCH ×2 (10:03→21:46)
[2017-01-25] MEDS: THIAMINE HCL 100 MG TABLET (FP) PO SCH (21:45)
[2017-01-25] MEDS: SENNOSIDES 8.6MG TABLET (FP) PO PRN (21:45)
[2017-01-25] MEDS: DOCUSATE SODIUM 100 MG CAPSULE (FP) PO SCH (21:45)
[2017-01-26] MEDS: diphenhydrAMINE HCL 50 MG CAPSULE PO PRN (01:22)
[2017-01-26 07:42] VITALS: BP 126/83; PULSE 60; TEMP 97.9
--- NOTE | 2017-01-26 09:07 | PN ---
Psychiatric Progress Note Vital Signs: Vital Signs Period Temp Pulse Resp BP Sys/Rinaldi Pulse Ox Last 24 Hr 97.9 F 60 18-18 126/83 Date of Session: 01/26/17 Chief Complaint:: Discharge visit HPI: Patient addressed Alcohol,Cocaine and Cannabis dependence comorbid with PTSD , Schizoaffective disorder. ROS: Significant for Anemia,BA,Low back pain. Current Medications: Active Medications Generic Name Dose Route Start Last Admin Trade Name Freq PRN Reason Stop Dose Admin Acetaminophen 650 mg 01/05/17 15:01 Tylenol - PO Q4H PRN FEVER OR PAIN Al Hydroxide/Mg Hydroxide 30 ml 01/05/17 15:01 01/07/17 13:13 Mylanta Oral Suspension - PO 30 ml Q6H PRN Administration DYSPEPSIA Albuterol Sulfate 2 puff 01/05/17 16:46 01/23/17 10:36 Ventolin Hfa Inhaler - IH 2 puff Q4H PRN Administration ASTHMA Bacitracin 0.9 gm 01/05/17 22:00 01/25/17 21:47 Bacitracin - TP 0.9 gm BID DELFIN Administration Benztropine Mesylate 0.5 mg 01/14/17 13:44 01/25/17 10:00 Cogentin - PO 0.5 mg BID PRN Administration AGITATION Colloidal Oatmeal 1 applic 01/19/17 13:26 01/23/17 07:02 Aveeno Soap - TP 1 applic DAILY PRN Administration HYGEINE Diphenhydramine HCl 50 mg 01/05/17 15:01 01/26/17 01:22 Benadryl - PO 50 mg HSMR1 PRN Administration FOR ITCHING Docusate Sodium 300 mg 01/15/17 22:00 01/25/17 21:45 Colace - PO 300 mg HS DELFIN Administration Eucalyptus/Menthol/Phenol/Sorbitol 1 each 01/05/17 15:01 Cepastat Lozenge - MM Q4H PRN SORE THROAT Guaifenesin 10 ml 01/05/17 15:01 Robitussin Dm - PO Q6H PRN COUGH Hydrocortisone 1 applic 01/05/17 22:00 01/25/17 21:48 Anusol 2.5% Hc Cream - RC 1 applic BID DELFIN Administration Hydroxyzine Pamoate 50 mg 01/14/17 13:42 01/25/17 08:44 Vistaril - PO 50 mg Q4H PRN Administration ANXIETY Ibuprofen 400 mg 01/05/17 15:01 01/18/17 06:25 Motrin - PO 400 mg Q6H PRN Administration PAIN Loperamide HCl 4 mg 01/05/17 15:01 Imodium - PO Q6H PRN DIARRHEA Lurasidone HCl 40 mg/ 60 mg 01/15/17 10:00 01/25/17 10:01 Lurasidone HCl 20 mg PO 60 mg DAILY DELFIN Administration Magnesium Hydroxide 30 ml 01/05/17 15:01 01/15/17 12:19 Milk Of Magnesia - PO 30 ml DAILY PRN Administration CONSTIPATION Nicotine 14 mg 01/06/17 10:00 01/25/17 10:02 Nicoderm Patch - TD 14 mg DAILY DELFIN Administration Nicotine Polacrilex 4 mg 01/21/17 14:39 01/25/17 21:47 Nicorette Gum - BUC 4 mg Q2H PRN Administration NICOTINE REPLACEMENT RX Olanzapine 5 mg 01/19/17 14:45 01/25/17 21:45 Zyprexa - PO 5 mg BID DELFIN Administration Multivit/Folic Acid/Iron 1 tab 01/06/17 10:00 01/25/17 10:00 Vitamins (Sjr) - PO 1 tab DAILY DELFIN Administration Pseudoephedrine/Triprolidine 1 combo 01/05/17 15:01 Actifed - PO TID PRN NASAL CONGESTION Senna 2 tab 01/15/17 16:19 01/25/17 21:45 Senna - PO 2 tab HS PRN Administration CONSTIPATION Thiamine HCl 100 mg 01/05/17 22:00 01/25/17 21:45 Vitamin B1 - PO 100 mg HS DELFIN Administration Tolnaftate 1 applic 01/05/17 22:00 01/25/17 21:46 Tinactin 1% Cream - TP Not Given BID DELFIN Current Side Effect: No Lab tests ordered: No Lab tests reviewed: Yes Provider note:: Patient completed this program today.She has met her treatment goals today and will continue to address her issues on outpatient basis.Patient reports finding Cogentin 0,5 mg po bid,Latuda 60 mg po daily and Zyprexa 5 mg po bid help to cope with psychotic symptoms,mood instability,anxiety and depression.Scripts for 30 days provided.Patient identifies areas of difficulties ,behaviors which contribute to realpse and skills,support she can utilze to maintain recovery. Patient is stable for discharge today. Total face to face time:: 30 Mental Status Exam - Mental Status Exam Alert and Oriented to: Time, Place, Person Cognitive Function: Grossly Intact Patient Appearance: Well Groomed Mood: Hopeful, Euthymic Affect: Appropriate, Mood Congruent Patient Behavior: Cooperative Speech Pattern: Clear Voice Loudness: Normal Thought Process: Goal Oriented Thought Disorder: Being Controlled Hallucinations: Denies Suicidal Ideation: Denies Homicidal Ideation: Denies Insight/Judgement: Fair Sleep: Fair Appetite: Good Muscle strength/Tone: Normal Gait/Station: Normal Psychiatric Treatment Plan - Problem List (8) PTSD (post-traumatic stress disorder) Comment: Self-report.
[2017-01-26] MEDS: BACITRACIN 0.9 GM PACKET TP SCH (09:45)
[2017-01-26] MEDS: PRENATAL VITAMINS W/ FOLIC ACID TABLET (FP) PO SCH (09:45)
[2017-01-26] MEDS: OLANZapine 5 MG TABLET PO SCH (09:45)
[2017-01-26] MEDS: TOLNAFTATE 1% CREAM 15 GM TUBE TP SCH (09:45)
[2017-01-26] MEDS: HYDROCORTISONE 2.5% TOPICAL CREAM 30 GM TUBE RC SCH (09:45)
[2017-01-26] MEDS: LURASIDONE HCL 40 MG, LURASIDONE HCL 20 MG PO SCH (09:46)
[2017-01-26] MEDS: NICOTINE 14 MG/24 HOURS TOPICAL PATCH TD SCH (09:46)
== END 2017-01-26 09:57 | disposition home or self-care (01) | DRG 772 ==
LOC: YASAS 12:55 → Y3E 12:58
PROVIDERS: ADMIT Psychiatry & Neurology Psychiatry; ATTEND Psychiatry & Neurology Psychiatry
PROC: HZ42ZZZ Group Counseling for Substance Abuse Treatment, Cognitive-Behavioral (ICD-10-PCS; principal; 2017-01-05)
DX: F10.20 Alcohol dependence, uncomplicated (principal); F14.20 Cocaine dependence, uncomplicated; F12.20 Cannabis dependence, uncomplicated; F17.210 Nicotine dependence, cigarettes, uncomplicated; F43.10 Post-traumatic stress disorder, unspecified; F25.9 Schizoaffective disorder, unspecified; M54.5 Low back pain; G89.29 Other chronic pain; J45.20 Mild intermittent asthma, uncomplicated; D64.9 Anemia, unspecified
CPT/HCPCS: 36415; 86803; 87389